=== PATIENT | male | born 1995 | race African-American/Black ===

== ENCOUNTER 2021-11-29 13:06 | Emergency (ER) | payer OTHER ==
[2021-11-29] MEDS ORDERED: NA CHLORIDE 0.9% 1,000 ML ONE (13:42)
[2021-11-29] MEDS ORDERED: LORazepam 2 MG/ML VIAL ONE (13:42)
[2021-11-29 14:00] LABS: Absolute Lymphocytes (CBC) 1.5 K/uL (0.7-4.9); Hematocrit 35.1 % (39.6-49.0); Lymphocytes % 17.1 % (15.3-44.8); MPV 8.5 fL (7.6-11.3); RBC Red Blood Cell Count 3.99 M/uL (4.33-5.43)
[2021-11-29 14:05] LABS: Protime INR 1.03
[2021-11-29 14:19] LABS: ALT/SGPT 21 U/L (12-78); AST/SGOT 19 U/L (15-37); Albumin 3.9 g/dL (3.4-5.0); Alkaline Phosphatase 82 U/L (45-117); BUN Blood Urea Nitrogen 14 mg/dL (7-18); Bicarbonate 28 mmol/L (21-32); Bilirubin Direct < 0.1 mg/dL (0-0.2); Bilirubin Total 0.3 mg/dL (0.2-1.0); Glucose Level 145 mg/dL (74-106); Potassium 3.6 mmol/L (3.5-5.1); Protein, Total 7.3 g/dL (6.4-8.2); Sodium Level 142 mmol/L (136-145)
--- NOTE | 2021-11-29 14:45 | EDPHYS ---
Physician Documentation [facility] Name: Raman Edwards Age: 26 yrs Sex: Male : 1995 Arrival Date: 11/29/2021 Time: 13:08 Bed 17 Private MD: ED Physician Nayan Pritchett HPI: 11/29 13:33 This 26 yrs old Black Male presents to ER via EMS with complaints of Drug Abuse. cp 13:33 The patient presents with confusion. cp 13:33 Onset: The symptoms/episode began/occurred today. Possible causes: drug use, Patient cp reports taking "Geodon". Associated signs and symptoms: Pertinent positives: confusion, elevated heart rate, Pertinent negatives: abdominal pain, chest pain. Patient's baseline: Neuro: alert and fully oriented, Motor: no deficits, Ambulation: walks without assistance, Speech: normal. Historical: - Allergies: 13:20 No Known Allergies; iw - Home Meds: 13:20 None [Active]; iw - PMHx: 13:20 None; iw - PSHx: 13:20 None; iw - Social history:: Smoking status: unknown. ROS: 13:40 Constitutional: Negative for body aches, chills, fever, poor PO intake. cp 13:40 Eyes: Negative for injury, pain, redness, and discharge. cp 13:40 Neck: Negative for pain with movement, pain at rest, stiffness. 13:40 Cardiovascular: Negative for chest pain. 13:40 Respiratory: Negative for cough, shortness of breath, wheezing. 13:40 Abdomen/GI: Negative for abdominal pain, vomiting, diarrhea, constipation. 13:40 Neuro: Positive for altered mental status, Negative for headache, seizure activity, weakness. 13:40 All other systems are negative. Exam: 13:45 Constitutional: The patient appears in no acute distress, alert, awake, cp non-diaphoretic, non-toxic, well developed, well nourished. 13:45 Head/Face: Normocephalic, atraumatic. cp 13:45 Eyes: Periorbital structures: Pupils: equal, round, and reactive to light and accomodation, Extraocular movements: intact throughout, Conjunctiva: normal, no exudate, no injection, Lids and lashes: appear normal, bilaterally. 13:45 ENT: External ear(s): are unremarkable, Nose: is normal, Mouth: Lips: moist, Oral mucosa: pink and intact, moist, Posterior pharynx: Airway: no evidence of obstruction, patent, swelling, is not appreciated, erythema, is not appreciated. 13:45 Neck: ROM/movement: is normal, is supple, without pain, no range of motions limitations, no meningismus. 13:45 Chest/axilla: Inspection: normal, Palpation: is normal, no crepitus, no tenderness. 13:45 Cardiovascular: Rate: tachycardic, Rhythm: regular. 13:45 Respiratory: the patient does not display signs of respiratory distress, Respirations: normal, no use of accessory muscles, no retractions, labored breathing, is not present, Breath sounds: are clear throughout, no decreased breath sounds, no stridor, no wheezing. 13:45 Abdomen/GI: Inspection: abdomen appears normal, Palpation: abdomen is soft and non-tender, in all quadrants. 13:45 Neuro: Orientation: to person, situation, Mentation: able to follow commands, Motor: moves all fours, strength is normal, Sensation: is normal. Vital Signs: 13:41 BP 122 / 101; Pulse 107; Resp 20 S; Pulse Ox 96% on R/A; iw MDM: 13:33 Patient medically screened. cp 14:00 Differential Diagnosis: alcohol intoxication, hypoglycemia, intracranial bleed, cp overdose, seizure, volume depletion. 14:44 Data reviewed: vital signs, nurses notes, lab test result(s). 14:44 ED course: VSS. Patient alert times three and answering questions appropriately. cp Patient requesting discharge back to care home unit. 11/29 13:33 Order name: Acetaminophen; Complete Time: 14:39 11/29 13:33 Order name: Basic Metabolic Panel; Complete Time: 14:39 11/29 13:33 Order name: CBC with Diff; Complete Time: 14:39 11/29 14:41 Interpretation: Normal except: RBC 3.99; HGB 12.1; HCT 35.1; PUNEET% 76.5. 11/29 13:33 Order name: ETOH Level; Complete Time: 14:39 11/29 13:33 Order name: Hepatic Function; Complete Time: 14:39 11/29 13:33 Order name: PT-INR; Complete Time: 14:39 cp 11/29 13:33 Order name: Ptt, Activated; Complete Time: 14:39 cp 11/29 13:33 Order name: Salicylate cp 11/29 13:33 Order name: EKG - Nurse/Tech cp 11/29 13:33 Order name: IV Saline Lock; Complete Time: 13:50 cp 11/29 13:33 Order name: Labs collected and sent; Complete Time: 13:50 cp 11/29 13:33 Order name: Urine Dipstick-Ancillary (obtain specimen) cp Administered Medications: 13:51 Drug: Ativan (LORazepam) 1 mg Route: IVP; Site: right antecubital; cb5 15:05 Not Given (Patient Refused): NS 0.9% 1000 ml IV at 1 bolus Per protocol; 1000 mL bolus cb5 Disposition Summary: 11/29/21 14:44 Discharge Ordered Location: Law Enforcement cp Problem: new cp Symptoms: have improved cp Condition: Stable cp Diagnosis - Encounter for examination and observation for other specified reasons cp Followup: cp - With: Emergency Department - When: As needed - Reason: Worsening of condition Discharge Instructions: - Discharge Summary Sheet cp - Prescription Drug Misuse Information cp - Illegal Drug Use Information, Adult cp Forms: - Medication Reconciliation Form cp - Thank You Letter cp - Antibiotic Education cp - Prescription Opioid Use cp Addendum: 12/01/2021 19:14 Co-signature as Attending Physician, Nayan Pritchett MD I agree with the assessment and k dr plan of care. Signatures: Dispatcher [employer] EDND Naayn Pritchett MD MD [facility] Michelle Villalobos RN RN iw Chip Mendoza PA PA cp Janiya Kidd, RN RN cb5 Corrections: (The following items were deleted from the chart) 11/29 13:50 13:33 Suicide Screening ([place]) ordered. cp iw 14:41 14:40 Normal except: RBC 3.99; HGB 12.1; HCT 35.1. cp cp
--- NOTE | 2021-11-29 14:45 | ER ---
Nurse's Notes [facility] Name: Raman Edwards Age: 26 yrs Sex: Male : 1995 Arrival Date: 11/29/2021 Time: 13:08 Bed 17 Private MD: Diagnosis: Encounter for examination and observation for other specified reasons Presentation: 11/29 13:09 Chief complaint: EMS states: were toned out to [place] [facility] for high heart rate and pt iw "acting strange", EMS reports pt agitaed, uncooperative on scene, sinus tach on monitor , gave 2 mg Narcan , pt seems more agitated now. Coronavirus screen: At this time, the client does not indicate any symptoms associated with coronavirus-19. Ebola Screen: Patient negative for fever greater than or equal to 101.5 degrees Fahrenheit, and additional compatible Ebola Virus Disease symptoms Patient denies exposure to infectious person. Patient denies travel to an Ebola-affected area in the 21 days before illness onset. No symptoms or risks identified at this time. Initial Sepsis Screen: Does the patient meet any 2 criteria? No. Patient's initial sepsis screen is negative. Does the patient have a suspected source of infection? No. Patient's initial sepsis screen is negative. Risk Assessment: Do you want to hurt yourself or someone else? Patient reports no desire to harm self or others. Onset of symptoms was November 29, 2021. 13:09 Method Of Arrival: EMS: [facility] iw 13:09 Acuity: ADELE 3 iw Historical: - Allergies: 13:20 No Known Allergies; iw - Home Meds: 13:20 None [Active]; iw - PMHx: 13:20 None; iw - PSHx: 13:20 None; iw - Social history:: Smoking status: unknown. Screenin:10 Abuse screen: Denies threats or abuse. Denies injuries from another. Nutritional cb5 screening: No deficits noted. Tuberculosis screening: No symptoms or risk factors identified. Fall Risk None identified. Assessment: 13:10 General: Appears comfortable, well groomed, Behavior is anxious, restless. Pain: Denies cb5 pain. Neuro: Level of Consciousness is awake, alert, Oriented to person, place, situation. Cardiovascular: Rhythm is sinus tachycardia. 13:10 Respiratory: No deficits noted. GI: No deficits noted. : No deficits noted. EENT: No cb5 deficits noted. Derm: No deficits noted. Musculoskeletal: No deficits noted. 14:11 General: pt is refusing I.V. fluids and EKG at this time. Pt in no acute distress, cb5 pulled off tele leads from jack tamp operator . Pt remains in police restraints, two correctional officers at bedside. . 14:30 General: pt responded well to lorazepam, in no acute distress, refusing care.. cb5 14:55 General: pt requesting to go back to facility with correctional officers, refusing cb5 care, informed P.A. Pt is awake, alert, oriented x3, denies pain, refusing nurse to take vital signs, refusing to be on jack tamp operator. . Overdose: 14:00 [place] Suicide Severity Screening: "In the past month, have you wished you were cb5 or wished you could go to sleep and not wake up?". 14:00 [place] Suicide Severity Screening: "In the past month, have you wished you were cb5 or wished you could go to sleep and not wake up?" Patient responds "no." "In the past month, have you actually had any thoughts of killing yourself?" Patient responds "no." "In your lifetime, have you ever done anything, started to do anything, or prepared to do anything to end your life?". Vital Signs: 13:41 BP 122 / 101; Pulse 107; Resp 20 S; Pulse Ox 96% on R/A; iw ED Course: 13:08 Patient arrived in ED. iw 13:10 Fall risk band placed. Side rails up X2. correctional officers at bedside with patient. cb5 Pt arrived with jhonatan police restraints via ems. 13:11 Triage completed. iw 13:15 Chip Mendoza PA is PHCP. cp 13:15 Nayan Pritchett MD is Attending Physician. cp 13:50 Initial lab(s) drawn, by me, sent to lab. Maintain EMS IV. Dressing intact. Good blood iw return noted. Site clean \\T\\ dry. Gauge \\T\\ site: 20 RAC. 13:53 Janiya Kidd, RN is Primary Nurse. cb5 14:00 Arm band placed on. cb5 15:00 IV discontinued. cb5 Administered Medications: 13:51 Drug: Ativan (LORazepam) 1 mg Route: IVP; Site: right antecubital; cb5 15:05 Not Given (Patient Refused): NS 0.9% 1000 ml IV at 1 bolus Per protocol; 1000 mL bolus cb5 Outcome: 14:44 Discharge ordered by MD. benites 15:10 Discharged to Law Enforcement cb5 15:10 Condition: stable 15:10 Discharge instructions given to patient, police. 15:14 Patient left the ED. cb5 Signatures: Michelle Villalobos RN RN Chip Panchal PA PA cp Boman, Colleen, CYNTHIA RN cb5
[2021-11-29 15:19] VITALS: BP 122/101; O2SAT 96
== END 2021-11-29 15:14 ==
LOC: ER 13:06
DX: R41.82 Altered mental status, unspecified (principal)
CPT/HCPCS: 36415; 80048; 80076; 80320; 80329; 85025; 85610; 85730; 96374; 99284; J7030